=== PATIENT | female | born 1990 | race Caucasian/White ===

== ENCOUNTER 2018-03-20 22:29 | Emergency (ER) | payer SELFPAY ==
[~2018-03-20] VITALS: Ht 160 cm; Wt 77.3 kg
[2018-03-20] MEDS ORDERED: GOOD NEIGHBOR200 M1 PO (22:50)
[2018-03-20 23:38] LABS: HEMATOCRIT 40.4 % (37.0-47.0); HEMOGLOBIN 12.9 g/dL (12.5-16.0); MEAN CELL VOLUME 90 fl (78-100); MEAN CORPUSCULAR HEMOGLOBIN 29 pg (27-31); MEAN CORPUSCULAR HGB CONC 32 g/dL (33-37); MEAN PLATELET VOLUME 8.7 fl (7.4-10.4); PLATELET COUNT 329 K/mm3 (130-400); RED BLOOD COUNT 4.48 M/mm3 (4.10-5.30); RED CELL DISTRIBUTION WIDTH 15.6 % (11.5-14.5); WHITE BLOOD COUNT 9.3 K/mm3 (4.8-10.8)
[2018-03-20 23:51] LABS: BAND 3 % (0-10); LYMPHOCYTE 7 % (20-51); MONOCYTE 8 % (3-10); NEUTROPHILS 80 % (42-75); OVALOCYTES 1+
[2018-03-21] MEDS ORDERED: CEPHALEXIN250 MG PO (00:03)
[2018-03-21] MEDS ORDERED: NORCO 325 MG-51 TA1 PO (00:03)
[2018-03-21 00:22] VITALS: BP 136/90
== END 2018-03-21 00:22 | disposition home or self-care (01) ==
LOC: ED 22:29
PROVIDERS: Family Medicine
DX: J02.9 Acute pharyngitis, unspecified (principal); R21 Rash and other nonspecific skin eruption